=== PATIENT | male | born 1985 | race Caucasian/White ===

== ENCOUNTER 2023-07-31 08:26 | Emergency (ER) | payer MEDICAID ==
[~2023-07-31] VITALS: Ht 188 cm; Wt 98.6 kg
[2023-07-31 08:28] VITALS: BP 141/42; PULSE 73; RESP 18; TEMP 98.4; O2SAT 97
[2023-07-31] MEDS ORDERED: ketorolac trometh. 30mg/ml inj. IM ONE (09:00)
[2023-07-31] MEDS ORDERED: ondansetron 4mg rapidly disintigrating tab PO ONE (09:00)
== END 2023-07-31 21:03 | disposition home or self-care (01) ==
LOC: ER 08:27
DX: G43.909 Migraine, unspecified, not intractable, without status migrainosus (principal); Z20.822 Contact with and (suspected) exposure to COVID-19
CPT/HCPCS: 36415; 87811; 96372; 99283; J1885